=== PATIENT | male | born 1955 | race Caucasian/White ===

== ENCOUNTER → 2021-12-29 09:59 | Outpatient (CLI) | payer MEDICARE, SELFPAY ==
[2021-12-29 11:32] LABS: COVID19 -Nasal RAPID Negative (Negative)
== END ==
PROVIDERS: PCP Family Medicine; Visit Provider Surgery
DX: Z01.812 Encounter for preprocedural laboratory examination (principal); Z20.822 Contact with and (suspected) exposure to COVID-19
CPT/HCPCS: 87635; C9803

== ENCOUNTER 2021-12-30 13:36 | Day surgery (SDC) | payer MEDICARE, SELFPAY ==
[2021-12-30 14:42] VITALS: BP 144/86; PULSE 77; RESP 18; TEMP 36.3; O2SAT 98; BMI 30.4
[2021-12-30] MEDS: LACTATED RINGERS 1,000 ML 42 ML IV (15:02)
--- NOTE | 2021-12-30 15:51 | PM.HP.1 ---
History of Present Illness History of Present Illness Date Patient Seen: 12/30/21 Time Patient Seen: 15:51 Chief complaint: Colonoscopy Narrative: Teddy is a 66-year-old man here for colonoscopy. He believes his last 1 was about 12 years ago. No polyps were found at that time. He has no known family history of colon cancer. Patient History Medical History (Updated 12/30/21 @ 15:52 by Lee Mclean MD) Hypothyroid Family & Social History Social History: household members spouse Tobacco & Substance use: Smoking Status Never smoker alcohol intake never Substance Use Type does not use Meds Home Medications and Allergies Home Medications Medication Instructions Recorded Confirmed Type sodium sul 1.479 gram-potas ch See Rx Instructions PO PER PKG DIR 12/20/21 Rx 0.188 gram-magnes sul 0.225 gram #24 tabs tablet (Sutab) levothyroxine 137 mcg tablet mcg 12/30/21 History (Synthroid) Allergies Allergy/AdvReac Type Severity Reaction Status Date / Time No Known Drug Allergies Allergy Verified 12/30/21 15:04 Exam Vital Signs (past 8 hours): - 12/30/21 14:42 Temperature 97.3 F L Pulse Rate 77 Respiratory Rate 18 Blood Pressure 144/86 H Pulse Oximetry 98 Oxygen Delivery Method Room Air Oxygen Delivery Method Room Air Const General: healthy appearing Resp Effort & Inspection: normal respiratory effort Assessment & Plan Assessment and plan (1) Colon cancer screening: Status: Acute Plan 66-year-old man here for colon cancer screening. We reviewed the risks and benefits of colonoscopy and he wishes to proceed. Time Spent With Patient Critical Care time: I spent a total of [] minutes of critical care time on this patient's care today; this time is exclusive of procedural time.
[2021-12-30 16:30] VITALS: BP 130/80; PULSE 82; RESP 16; O2SAT 98
--- NOTE | 2021-12-30 16:30 | PM.OP.COLON ---
Operative Date/Time/Diagnoses Date of procedure: 12/30/21 Time of procedure: 16:30 Pre-op diagnosis: colon cancer screening Post-op diagnosis: same Procedure & Clinicians Study performed: Colonoscopy Same procedure as scheduled: Yes Surgeon: Lee Mclean Procedure Notes Procedure in detail: Surgeon: Lee Mclean MD Procedure: The patient was brought to the endoscopy suite, placed in left lateral decubitus position. The patient was connected to monitoring devices. A time-out was performed. Sedation was administered. Once the patient was adequately sedated, a digital rectal exam was performed and was normal. The scope was then inserted and advanced to the cecum where the appendiceal orifice was identified and photographed. The scope was then slowly withdrawn over greater than 6 minutes. The mucosa was thoroughly inspected. No polyps were noted. There were scattered diverticula in the left colon. The scope was retroflexed in the rectum. No abnormality was noted. The scope was straightened and removed. The patient was awakened and brought to recovery. Versed: 8 mg Fentanyl: 175 mcg EBL: 0 Findings: Scattered diverticulosis Scope withdrawal time: 6 Sedation minutes: 20 Post-procedure Recommendations: Colonoscopy in 10 years Disposition: PACU
[2021-12-30] MEDS: MIDAZOLAM 2 MG/2 ML VIAL IV (16:31)
[2021-12-30] MEDS: fentaNYL 100 MCG/2 ML INJ IV (16:32)
[2021-12-30 16:35] VITALS: BP 120/70; PULSE 83; RESP 16; TEMP 36.2; O2SAT 98
[2021-12-30 16:40] VITALS: BP 130/70; PULSE 80; RESP 16; O2SAT 98
[2021-12-30 16:47] VITALS: BP 131/81; PULSE 83; RESP 16; TEMP 36.7; O2SAT 98
== END 2021-12-30 16:57 | disposition home or self-care (01) ==
PROVIDERS: PCP Family Medicine; Referring Provider Surgery; Visit Provider Surgery
PROC: 0DJD8ZZ Inspection of Lower Intestinal Tract, Via Natural or Artificial Opening Endoscopic (ICD-10-PCS; CPT 45378; principal; 2021-12-30 14:45)
DX: Z12.11 Encounter for screening for malignant neoplasm of colon (principal); K57.30 Diverticulosis of large intestine without perforation or abscess without bleeding; E03.9 Hypothyroidism, unspecified
CPT/HCPCS: G0121; 99152; J2250; J3010